=== PATIENT | female | born 1985 | race Caucasian/White ===

== ENCOUNTER 2017-09-07 20:59 | Emergency (ER) | payer OTHER ==
[2017-09-07 21:08] VITALS: BP 127/71; PULSE 74; RESP 18; TEMP 97.7; O2SAT 96
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
[2017-09-07] MEDS ORDERED: HYDROCOD/APAP 5/325 PREPACK#6 BTL TAKEHOME ONE (21:59)
== END 2017-09-07 22:24 | disposition home or self-care (01) ==
PROC: 0HBFXZZ Excision of Right Hand Skin, External Approach (ICD-10-PCS; principal; 2017-09-07)
DX: T23.231A Burn of second degree of multiple right fingers (nail), not including thumb, initial encounter (principal); T31.0 Burns involving less than 10% of body surface; X19.XXXA Contact with other heat and hot substances, initial encounter; Y99.8 Other external cause status; Y93.89 Activity, other specified

== ENCOUNTER 2018-10-05 11:46 | Observation (INO) | payer BC ==
[2018-10-05 12:32] LABS: PLATELET COUNT 226 10^3/uL (150-400)
--- NOTE | 2018-10-05 14:09 | PDGENHP ---
History and Physical History and Physical: CARE: [facility][1] HPI: Patient is a 33 yo at 32 weeks ega who presents to L&D from the [facility][1] due to an episode of blurry vision and high BPs at work this AM. Her BP at the [facility] was 112/90. She was sent here for further evaluation. She reports good movement, denies pain/contractions, LOF or vaginal bleeding. She states she has not been sleeping well the last several nights, woke up at 4 am today and had a mostly carbohydrate breakfast. She drank 2 liters of water after blurry vision episode and feels better now. EDC: 11/26/18 which is based on LMP: 02/19/18 which is known and consistent with Ultrasound at 8 weeks. Her is complicated by: -h/o anxiety, frequently stress related- not treated Review of Systems: Constitutional: Denies any fever, chills, has had some mild fatigue today HEENT: reports period of blurry vision, denies difficulty swallowing, hearing loss Cardiovascular: Denies any chest pain, palpitations, leg swelling Respiratory: denies any cough, wheezing, or shortness of breathe GI: Denies any nausea, vomiting, diarrhea, constipation : denies any dysuria, urgency, frequency, vaginal bleeding Musculoskeletal: denies any muscle or bone pain Skin: denies any rashes Neuro: denies any headache, seizures, lightheadedness, dizziness, or loss of consciousness Psychiatric: denies any current depression, anxiety, or SI/HI thoughts HISTORY: Previous OB history: none Past medical history: mild anxiety, not treated Social history: , denies tobacco, alcohol or street drug use Past surgical history: none Medications: PNV, DHA, magnesium, folic acid Allergies (list reaction): NKDA LABS: Rh: B pos ABS: Neg Rubella: Immune HbsAg: NR HIV: NR VDRL: NR 1hr: 74 GC: Neg Chlamydia: Neg Pap: Normal GBS: unknown PHYSICAL EXAM: Constitutional: WN, A&Ox3 Skin: pink, warm and dry HEENT: normocephalic atraumatic, supple Heart: RRR, no murmur Chest: CTA-B Abdomen: Soft, nontender, gravid SVE: deferred Extremities: trace lower extremity edema, negative bolivar's sign Neuro: grossly normal Psych: normal affect assessment: Reassuring FHTs, baseline 140s +accels, no decels, moderate variability Contractions: toco quiet Assessment: 1) 33 yo G 1P 0 with IUP@ 32 weeks ega with h/o blurry vision episode and elevated BPs at work this AM 2) Serial BPs here in L/D : 110-120s/60s range 3) All PIH labs WNL, urine dip neg protein 4) Cat 1 FHR tracing, no pain/cntx, active baby 5) Suspect low blood sugar episode or dehydration with the possibility of inaccurate BP cuff at work Plan: Discharge home 1) Encouraged better hydration and protein intake with every meal 2) Pre-eclampsia precautions reviewed with patient - to call center if similar symptoms return 3) kick counts reviewed 4) Follow up with center for [facility] tomorrow
== END 2018-10-05 14:10 | disposition home or self-care (01) ==
LOC: FLD 11:46
PROVIDERS: ADMIT Advanced Practice Midwife; ATTEND Advanced Practice Midwife
DX: O16.3 Unspecified maternal hypertension, third trimester (principal); H53.8 Other visual disturbances; Z3A.32 32 weeks gestation of pregnancy
CPT/HCPCS: G0378 ×2

== ENCOUNTER 2018-11-10 09:28 | Inpatient (IN) | payer BC ==
[2018-11-10] MEDS ORDERED: OLIVE OIL 118 ML BTL MISC ONE (10:12)
[2018-11-10] MEDS ORDERED: TERBUTALINE SULFATE 1 MG/ML VIAL IV ONE (10:12)
--- NOTE | 2018-11-10 10:42 | PDANEPAE ---
ANE Past Medical History - Pulmonary History Hx Sleep Apnea: No - Endocrine History Hx Diabetes: No ANE Review of Systems Review of Systems: ANE Patient History - Allergies Allergies/Adverse Reactions: No Known Allergies Allergy (Unverified 09/07/17 21:05) - Home Medications Home Medications: NK [No Known Home Meds] 09/07/17 [Last Taken Unknown] - Smoking Hx Smoking Status: Never smoked ANE Physical Exam - Airway Neck exam: FROM Mallampati Score: Class 1 Mouth exam: normal dental/mouth exam - Pulmonary Pulmonary: no respiratory distress - Cardiovascular Cardiovascular: regular rate and rhythym - ASA Status ASA Status: II ANE Anesthesia Plan Anesthesia Plan: MAC
--- NOTE | 2018-11-10 11:16 | GHP ---
DATE OF ADMISSION: 11/10/2018 HISTORY OF PRESENT ILLNESS: The patient is a 33-year-old 1, para 0, who is 37-3/7 weeks' ges tation and with known breech presentation. The patient's estimated date of confinement is 11/26/2018 , dated by last menstrual period of 02/19/2018, and consistent with a 1st-trimester ultrasound. Sharla ent has been receiving care with the [facility]. She has been known to be in a breech presentation and was counseled in our office about attempted external cephalic version versus scheduled . The patient has been properly consented and is electing to proceed with an ext ernal cephalic version. Risks and benefits have been extensively reviewed with the patient and the f ather of the baby, and patient has been properly consented. MEDICAL HISTORY: Significant for mild anxiety. Patient is a 21 congenital adrenal hyperplasia niranjan er. Father of the baby is negative. MEDICATIONS: vitamins and iron. SURGICAL HISTORY: None. ALLERGIES: No known drug allergies. SOCIAL HISTORY: Patient is a vet. She denies tobacco, alcohol, or drug use. FAMILY MEDICAL HISTORY: Noncontributory. 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 Periods every 35 days lasting 3-8 days. She is a 1, para 0. Patient initiated care at [facility], then transferred to [facility], and then later transferred to the [facility]. Patient denies any history of any abn ormal Pap smears or sexually transmitted diseases. PHYSICAL EXAM: VITAL SIGNS: Stable. GENERAL APPEARANCE: Alert and oriented x3. MUSCULOSKELETAL: Grossly intact. PSYCH: Appropriate affect. HEART: Irregular irregular. LUNGS: Clear to ausculta tion bilaterally. ABDOMEN: Gravid, nondistended, nontender. EXTREMITIES: No calf tenderness or ed alexandra. PELVIC: Deferred. heart tracing is positive accelerations, no decelerations. Is reacti ve and reassuring, and baby is confirmed to be in the breech presentation. LABORATORY DATA: Blood type B positive, antibody screen negative, rubella immune. HBsAg ne gative. HIV negative. Her 50 g glucose was 74. Her GBS was unknown. REVIEW OF SYSTEMS: 10-point review of systems is negative. Positive movement. No loss of flu id. No vaginal bleeding. Denies any headache or changes in vision. ASSESSMENT AND PLAN: 33-year-old 1, para 0, at 37-3/7 weeks' gestation, here for an attempte d external cephalic version. Risks and benefits have been extensively reviewed with the patient. Th e patient has been properly consented. /[id number]/MODL
--- NOTE | 2018-11-10 11:37 | SOAPPROG ---
SOAP Progress Note Assessment/Plan: Assessment: [id number] with IUP@ 37-3wks Breech presentation failed ECV Cat 1 FHR tracing Plan: d/c home f/u with CNM @ [facility] and labor prec discussed advised to cont position changes 11/10/18 11:34 Subjective: Pt doing well. Feels good about attempt to rotate baby. She denies any pain. Objective: FHR tracing 125, +Accels, no decels, mod BTBV ICD10 Worksheet Patient Problems: Problems Problem Status Onset Breech presentation Acute - ICD10 Problem Qualifiers (1) Breech presentation
--- NOTE | 2018-11-10 11:42 | POSTANESTH ---
Post Anesthetic Evaluation Cardiovascular Status: Similar to Pre-Op Cond Respiratory Status: Similar to Pre-op Cond. Level of Consciousness/Mental Status: Alert and Oriented Pain Control: Adequate, Prn Tx Ordered Nausea/Vomiting Control: Adequate, Prn Tx Ordered Complications Possibly Related to Anesthesia: None Noted
--- NOTE | 2018-11-10 16:20 | OBPROG ---
Labor Progress Note Assessment/Plan: Assessment: 33 y/o @ 37 3/7 weeks with malpresentation-breech s/p failed ECV this morning now with vaginal bleeding Plan: Will obtain u/s to r/o abruption FHTs - Category I tracing, cont to monitor If she continues to bleed, will proceed with c/s tonight NPO for now, last ate at 1300 11/10/18 16:16 Subjective/Intrapartum Course: 11/10/18 16:20 Pt seen and examined. She states some mild cramping, but doesn't feel like BH ctx's. She has been lying in bed and noted bleeding that began around 1330. She is still bleeding that is staining her underwear. Good FM noted. Objective: Patient ABO/Rh B POSITIVE 11/10/18 10:30 - Contraction Pattern Assessment Current Contraction Pattern: Other (Specify) (no irritability; no ctx's) - FHR Assessment Springer FHR (bpm): 140 FHR Pattern Variability: Moderate FHR Category: 1 - Physical Exam General Appearance: WD/WN, alert, no apparent distress Abdomen: non-tender, soft, other (gravid) Oxytocin Orders Assessment - Pre-Induction/Augmentation Assessment Gestational Age: 37 week(s) and 5 day(s) ICD10 Worksheet Patient Problems: Problems Problem Status Onset Breech presentation Acute
[2018-11-10 18:08] LABS: PLATELET COUNT 204 10^3/uL (150-400)
--- NOTE | 2018-11-10 19:17 | OBPROG ---
Labor Progress Note Assessment/Plan: Assessment: 33 y/o @ 37 5/7 weeks with malpresentation-breech s/p failed ECV this morning now with vaginal bleeding Plan: US reveals ant fundal placenta without abruption Pt is Rh positive (B+) Pt is stable at this time and bleeding seems to have slowed down FHTs - Category I tracing, no irritability on toco Will do pad count overnight and continue to observe MFM consult in am 11/11/18 11/10/18 19:21 Subjective/Intrapartum Course: 11/10/18 16:20 Pt seen and examined. She states some mild cramping, but doesn't feel like BH ctx's. She has been lying in bed and noted bleeding that began around 1330. She is still bleeding that is staining her underwear. Good FM noted. 11/10/18 19:18 Pt states bleeding has slowed down and just finished eating dinner. Notes Good FM. Denies any pain or ctx's at this time. Objective: 11/10/18 17:30 Patient ABO/Rh B POSITIVE 11/10/18 10:30 - Contraction Pattern Assessment Current Contraction Pattern: Other (Specify) (no irritability; no ctx's) - FHR Assessment Springer FHR (bpm): 135 FHR Pattern Variability: Moderate FHR Category: 1 - AP Antepartum Course: 11/10/18 19:19 center patient; malpresentation-breech for ECV; GBS unknown Oxytocin Orders Assessment - Pre-Induction/Augmentation Assessment Gestational Age: 37 week(s) and 5 day(s) ICD10 Worksheet Patient Problems: Problems Problem Status Onset Breech presentation Acute Failed external cephalic version Acute Vaginal bleeding during Acute - ICD10 Problem Qualifiers (1) Vaginal bleeding during (2) Failed external cephalic version
--- NOTE | 2018-11-11 11:36 | GOP ---
DATE OF OPERATION: 11/10/2018 SURGEON: Loretta Sainz DO PREOPERATIVE DIAGNOSIS: POSTOPERATIVE DIAGNOSIS: PROCEDURE PERFORMED: FINDINGS: DESCRIPTION OF PROCEDURE: Patient presented an is a 33-year-old, G1, P0 who presented for an externa l cephalic version and the patient's status was reassuring prior to the attempted external ceph alic version. A bedside ultrasound was performed, which showed the baby to be in the bakari breech pr esentation. An IV was started. She was given IV terbutaline 0.25 mg and an external cephalic versio n was attempted. Two attempts at a forward roll were made and 1 attempt at a backward roll. We were able to get the baby to flip temporarily, but it reverted back to breech presentation. status remained reassuring throughout the entire procedure. She had a nonstress test and monitoring for an hour after the procedure in which the baby remained reassuring. The patient was instructed to follo w up with labor precautions and kick counts and to schedule a primary section at 39 weeks. PLANNED PROCEDURE: Attempted external cephalic version. /[id number]/MODL
[2018-11-11] MEDS ORDERED: CITRIC ACID/SODIUM CITRATE 30 ML UDCUP PO ONE (17:01)
[2018-11-11] MEDS ORDERED: LR 500 ML IV ONE (17:01)
[2018-11-11] MEDS ORDERED: ceFAZolin 2 GM/DEXTROSE 100 ML IV ONE (17:01)
--- NOTE | 2018-11-11 17:13 | PREANESOB ---
Obstetric Pre-Anesthesia Info - General Info Proposed Procedure: c/s : 1 Para: 0 JEWEL: 11/26/18 Gestational Age: 37 week(s) and 5 day(s) - Labor Status PIH: No Magnesium Sulfate in Use: No Section History: Primary Indications for Current Section: Abnormal Lie Labor Epidural: No Anesthesia Allergies/Adverse Reactions: Allergy/AdvReac Type Severity Reaction Status Date / Time No Known Allergies Allergy Unverified 09/07/17 21:05 Home Medications: Medication Instructions Recorded NK [No Known Home Meds] 09/07/17 Visit Medications: Generic Name Dose Route Start Last Admin Trade Name Freq PRN Reason Stop Dose Admin Cefazolin Sodium/Dextrose 100 mls @ 200 mls/hr 11/11/18 17:01 Ancef IV 11/11/18 17:30 ONCALL ONE Protocol Lactated Ringer's 1,000 mls @ 125 mls/hr 11/11/18 17:30 Lr IV 11/12/18 17:29 CONT ANTHONY Discontinued Medications Generic Name Dose Route Start Last Admin Trade Name Freq PRN Reason Stop Dose Admin Citric Acid/Sodium Citrate 30 ml 11/11/18 17:01 Bicitra PO 11/11/18 17:02 ONCALL ONE Lactated Ringer's 500 mls @ 0 mls/hr 11/11/18 17:01 Lr IV 11/11/18 17:02 ONCE ONE As Directed [place] Oil 118 ml 11/10/18 10:12 11/11/18 09:41 Sweet Oil MISC 11/10/18 10:13 Not Given ONCE ONE Terbutaline Sulfate 0.25 mg 11/10/18 10:12 11/10/18 11:05 Brethine IV 11/10/18 10:13 0.25 mg ONCALL ONE Administration - Anesthesia History Response to Local Anesthetics: Normal - Social History Substance Use/Abuse: Denies - Vital Signs Latest Vital Signs (Nursing): Temp Pulse Resp BP Pulse Ox 36.8 C 16 131/73 H 11/11/18 16:47 11/11/18 16:47 11/11/18 16:47 Height/Weight (Nursing): Height 167.64 cm Weight 78.018 kg - Focused Exam Neck exam: FROM Mallampati Score: Class 2 Mouth exam: normal dental/mouth exam Pulmonary: no respiratory distress, clear to auscultation Cardiovascular: regular rate and rhythym, no murmur, rub, or gallop Labs: 11/10/18 17:30 Patient ABO/Rh B POSITIVE 11/10/18 10:30 - Plan Consent Signed and on Chart: Yes Patient/Guardian Understands and Agrees to Plan: Yes
[2018-11-11] MEDS ORDERED: MISOPROSTOL 200 MCG TAB ONE (17:18)
[2018-11-11] MEDS ORDERED: morphINE PF 5 MG/10 ML INJ ONE (17:18)
[2018-11-11] MEDS ORDERED: LR 1,000 ML IV SCH (17:30)
[2018-11-11] MEDS ORDERED: ONDANSETRON 4 MG/2 ML VIAL IVP PRN (19:18)
[2018-11-11] MEDS ORDERED: NALOXONE HCL 0.4 MG/ML INJ IVP PRN (19:18)
--- NOTE | 2018-11-11 19:22 | POSTANESTH ---
Post Anesthetic Evaluation Cardiovascular Status: Normal, Stable Respiratory Status: Normal, Stable Level of Consciousness/Mental Status: Can Participate in Eval Pain Control: Adequate, Prn Tx Ordered Nausea/Vomiting Control: Adequate, Prn Tx Ordered Complications Possibly Related to Anesthesia: None Noted
[2018-11-11] MEDS ORDERED: OXYTOCIN/RINGERS LACTATE 1,000 ML IV SCH (20:00)
[2018-11-11] MEDS ORDERED: POLYETHYLENE GLYCOL 3350 17 GM PKT PO PRN (20:03)
[2018-11-11] MEDS ORDERED: MAGNESIUM HYDROXIDE 30 ML UDCUP PO PRN (20:03)
[2018-11-11] MEDS ORDERED: LACTULOSE 20 GM/30 ML UDCUP PO PRN (20:03)
[2018-11-11] MEDS ORDERED: PROMETHAZINE HCL 25 MG/ML INJ IVP ONE (20:03)
[2018-11-11] MEDS ORDERED: BISACODYL 10 MG SUPP PR PRN (20:03)
--- NOTE | 2018-11-11 20:09 | OBDEL ---
Info Type: Primary Presentation at Delivery: Breech L&D Analgesia/Anesthesia Type: Spinal GBS+: No (unknown) Intrapartum Medications: Discontinued Medications Generic Name Dose Route Start Last Admin Trade Name Rosa PRN Reason Stop Dose Admin Cefazolin Sodium/Dextrose 100 mls @ 200 mls/hr 11/11/18 17:01 11/11/18 17:25 Ancef IV 11/11/18 17:30 100 mls ONCALL ONE Administration Protocol [place] Oil 118 ml 11/10/18 10:12 11/11/18 09:41 Sweet Oil MISC 11/10/18 10:13 Not Given ONCE ONE Terbutaline Sulfate 0.25 mg 11/10/18 10:12 11/10/18 11:05 Brethine IV 11/10/18 10:13 0.25 mg ONCALL ONE Administration - Care Provider Terrazzo Mechanic Helper/DONOR SUPPORT TECHNICIAN: Deisy Benitez - Hospital Course Intrapartum: 11/10/18 16:20 Pt seen and examined. She states some mild cramping, but doesn't feel like BH ctx's. She has been lying in bed and noted bleeding that began around 1330. She is still bleeding that is staining her underwear. Good FM noted. 11/10/18 19:18 Pt states bleeding has slowed down and just finished eating dinner. Notes Good FM. Denies any pain or ctx's at this time. Operative Report - Delivery Pre-op Diagnoses: IUP at 37w6d, breech, failed ECV, partial placenta abruption Post-op Diagnoses: same History of Prior Section: No Nulliparous Prior to Delivery: No Indications for Current Section: Breech, Placental Abruption ( suspicion for abruption due to bleeding after GOPI) Procedure: Unscheduled Surgeon: Ai Gill Relay Engineer: Edelmira Cardenas Anesthesiologist: Deisy Benitez Complications: Other (Specify) (breech) Findings: nl uterus except small bleb on ant right DUARTE - c/w old blood accumulation - approx 1.5 cm. nl ov/tubes. clear fluid. placenta well applied - small lobe to side. baby vigorous after . 1 min delayed cord clamp [place] Data JEWEL: 11/26/18 Gestational Age: 37 week(s) and 6 day(s) Springer Delivery Date: 11/11/18 Delivery Time: 18:20 Sex of : Male Score (1 Min): 8 Score (5 Min): 9 ICD10 Worksheet Patient Problems: Problems Problem Status Onset Breech presentation Acute Failed external cephalic version Acute S/P primary low transverse Acute Vaginal bleeding during Acute
[2018-11-11] MEDS: KETOROLAC 30 MG/1 ML SDV IVP SCH (23:24)
[2018-11-11] MEDS: IBUPROFEN 600 MG TAB PO SCH (23:28)
[2018-11-11] MEDS: ACETAMINOPHEN 325 MG TAB PO SCH (23:30)
[2018-11-11] MEDS: SENNOSIDES/DOCUSATE SODIUM TAB PO SCH (23:31)
[2018-11-12] MEDS: ACETAMINOPHEN 325 MG TAB PO SCH ×4 (04:13→21:02)
[2018-11-12] MEDS: IBUPROFEN 600 MG TAB PO SCH ×3 (04:13→17:39)
[2018-11-12] MEDS: KETOROLAC 30 MG/1 ML SDV IVP SCH ×3 (05:58→19:04)
[2018-11-12] MEDS: SENNOSIDES/DOCUSATE SODIUM TAB PO SCH ×2 (09:00→21:03)
--- NOTE | 2018-11-12 14:58 | PDPAINCON ---
Pain Management Consultation Patient referred by : Reinaldo - Subjective Pain is: under control Side effects include: itchiness Activity: able to ambulate - Objective Technique: spinal opioid Vital signs: stable - Assessment/Plan Assessment/Plan: pain well-controlled, continue current mgmt (Pt doing well s/p CS with spinal duramorph. Reports some itchiness however manageable.)
[2018-11-12] MEDS ORDERED: KETOROLAC 30 MG/1 ML SDV IVP ONE (18:30)
--- NOTE | 2018-11-12 22:06 | OBPP ---
Progress Note Assessment/Plan: Assessment: pod# 1 s/p PLTCS for breech - failed version probable partial abruption breast feeding routine post care anemia - iron Plan: 11/12/18 22:03 11/12/18 22:05 Subjective/ Course: 11/12/18 22:05 patient is doing well. pain is well controlled. sitting up in rocking chair. breast feeding is going well. denies headache and changes in vision. normal lochia. pain is well controlled. Objective: 11/12/18 03:50 Patient ABO/Rh B POSITIVE 11/10/18 10:30 Temp Pulse Resp BP Pulse Ox 36.3 C 92 18 104/69 95 11/12/18 20:00 11/12/18 20:00 11/12/18 20:00 11/12/18 20:00 11/12/18 20:00 Physical Exam - Physical Exam Neck: non-tender, full range of motion, supple Respiratory: chest non-tender, lungs clear, normal breath sounds Cardiac/Chest: normal peripheral pulses, regular rate, rhythm Abdomen: normal bowel sounds, non-tender Extremities: normal range of motion, non-tender, normal inspection, normal capillary refill Skin: normal color, warm/dry, other (incision covered) Neuro/Psych: no motor/sensory deficits, alert, normal mood/affect, oriented x 3
[2018-11-13] MEDS: IBUPROFEN 600 MG TAB PO SCH ×5 (01:04→19:19)
[2018-11-13] MEDS: oxyCODONE IR 5 MG TAB PO PRN ×6 (01:21→23:17)
[2018-11-13] MEDS: ACETAMINOPHEN 325 MG TAB PO SCH ×3 (03:00→16:28)
[2018-11-13] MEDS: SENNOSIDES/DOCUSATE SODIUM TAB PO SCH ×2 (09:19→19:19)
[2018-11-13] MEDS: FERRO-SEQUELS 65 MG TAB.ER PO SCH (09:20)
--- NOTE | 2018-11-13 09:41 | OBPP ---
Progress Note Assessment/Plan: Assessment: pod# 2 s/p PLTCS for breech - failed version probable partial abruption breast feeding routine post care anemia - iron 11/13/18 09:34 Subjective/ Course: 11/12/18 22:05 patient is doing well. pain is well controlled. sitting up in rocking chair. breast feeding is going well. denies headache and changes in vision. normal lochia. pain is well controlled. 11/13/18 09:35 patient is doing great. pain has increased as duramorph has worn off but pain is controlled with oxycodone. had a small bowel movement. denies headache and changes in vision. ambulating without difficulty. breast feeding is going well. Objective: 11/12/18 03:50 Patient ABO/Rh B POSITIVE 11/10/18 10:30 Temp Pulse Resp BP Pulse Ox 36.6 C 62 16 110/79 96 11/13/18 01:33 11/13/18 01:33 11/13/18 01:33 11/13/18 01:33 11/13/18 01:33 Physical Exam - Physical Exam EENT: PERRL/EOMI, normal ENT inspection Neck: non-tender, full range of motion Respiratory: chest non-tender, lungs clear, normal breath sounds Cardiac/Chest: normal peripheral pulses, regular rate, rhythm Abdomen: normal bowel sounds, non-tender, other (fundus firm and non tender) Extremities: normal range of motion, non-tender, normal inspection, normal capillary refill Skin: normal color, warm/dry, other (incicison clean dry and intact) Neuro/Psych: no motor/sensory deficits, alert, normal mood/affect, oriented x 3
[2018-11-14] MEDS: IBUPROFEN 600 MG TAB PO SCH ×3 (02:38→15:20)
[2018-11-14] MEDS: ACETAMINOPHEN 325 MG TAB PO SCH ×4 (02:38→15:20)
[2018-11-14] MEDS: oxyCODONE IR 5 MG TAB PO PRN ×3 (03:21→12:58)
[2018-11-14] MEDS: FERRO-SEQUELS 65 MG TAB.ER PO SCH (08:53)
[2018-11-14] MEDS: SENNOSIDES/DOCUSATE SODIUM TAB PO SCH (08:54)
--- NOTE | 2018-11-14 10:40 | OBPP ---
Progress Note Assessment/Plan: Assessment: 33 y/o POD #3 s/p LTCS secondary to breech, failed ECV and bleeding Plan: D/c home today with Rx Ibuprofen, Oxy and Iron. Follow-up @ [facility] 2,4 and 6 weeks. 11/14/18 10:41 Subjective/ Course: 11/12/18 22:05 patient is doing well. pain is well controlled. sitting up in rocking chair. breast feeding is going well. denies headache and changes in vision. normal lochia. pain is well controlled. 11/13/18 09:35 patient is doing great. pain has increased as duramorph has worn off but pain is controlled with oxycodone. had a small bowel movement. denies headache and changes in vision. ambulating without difficulty. breast feeding is going well. 11/14/18 10:30 Pt is doing better today. She has good pain control with Ibuprofen, Tylenol and Oxycodone. She is ambulating, voiding and has min lochia. She had a BM today and it was fine. Breast feeding is going well. They are ready to go home. Objective: 11/12/18 03:50 Patient ABO/Rh B POSITIVE 11/10/18 10:30 Temp Pulse Resp BP Pulse Ox 37.1 C 66 16 102/66 94 11/13/18 20:00 11/13/18 20:00 11/13/18 20:00 11/13/18 20:00 11/13/18 20:00 Uterine Position/Fundal Height: Umbilicus -3 Uterine Tone: Firm Physical Exam - Physical Exam General Appearance: alert, no apparent distress Neck: non-tender, full range of motion, supple Respiratory: chest non-tender, lungs clear, normal breath sounds Cardiac/Chest: regular rate, rhythm Abdomen: normal bowel sounds, incision (c/d/i) Extremities: swelling (no), Roula's sign (neg)
--- NOTE | 2018-11-14 10:46 | OBGCSDC ---
General Delivery Information - General Info : 1 Para: 1 Abortions: 0 Type: Primary L&D Analgesia/Anesthesia Type: Spinal Admission Date: 11/12/18 Labs: Patient ABO/Rh B POSITIVE 11/10/18 10:30 Hct 34.1 % (38.0-47.0) L 11/12/18 03:50 - Hospital Course Antepartum: 11/10/18 19:19 center patient; malpresentation-breech for ECV; GBS unknown Intrapartum: 11/10/18 16:20 Pt seen and examined. She states some mild cramping, but doesn't feel like BH ctx's. She has been lying in bed and noted bleeding that began around 1330. She is still bleeding that is staining her underwear. Good FM noted. 11/10/18 19:18 Pt states bleeding has slowed down and just finished eating dinner. Notes Good FM. Denies any pain or ctx's at this time. : 11/12/18 22:05 patient is doing well. pain is well controlled. sitting up in rocking chair. breast feeding is going well. denies headache and changes in vision. normal lochia. pain is well controlled. 11/13/18 09:35 patient is doing great. pain has increased as duramorph has worn off but pain is controlled with oxycodone. had a small bowel movement. denies headache and changes in vision. ambulating without difficulty. breast feeding is going well. 11/14/18 10:30 Pt is doing better today. She has good pain control with Ibuprofen, Tylenol and Oxycodone. She is ambulating, voiding and has min lochia. She had a BM today and it was fine. Breast feeding is going well. They are ready to go home. - Delivery Providers Surgeon: Ai Gill [employer] Operating Engineer: Edelmira Cardenas Anesthesiologist: Deisy Benitez - Delivery Indications for Current Section: Breech, Placental Abruption ( suspicion for abruption due to bleeding after GOPI) Surgical Procedures: Unscheduled Intra-op Complications: Other (Specify) (breech) [place] Data JEWEL: 11/26/18 Gestational Age: 38 week(s) and 2 day(s) Springer Delivery Date: 11/11/18 Delivery Time: 18:20 Sex of Infant: Male Weight (gm): 2452 kg Score (1 Min): 8 Score (5 Min): 9 Discharge Information - Discharge Information Prescriptions: oxyCODONE IR [Oxycodone Ir (*)] 5 - 10 mg PO Q4HRS PRN #30 tab PRN Reason: Pain, Severe Ibuprofen [Motrin (*)] 600 mg PO Q6H #30 tab Iron/Vit C/Docusate [Yuridia-Sequels 65 mg (*)] 1 each PO DAILY #30 tab.er Condition: Good Instruction/Follow Up: Two Weeks, Four Weeks, Six Weeks
[2018-11-14 10:48] VITALS: BP 100/66
== END 2018-11-14 14:20 | disposition home or self-care (01) | DRG 786 ==
LOC: FOBOP 09:28 → FLD 16:28 → FOB 11-11 22:36 → OBSVTOIN 11-12 03:48
PROVIDERS: ADMIT Obstetrics & Gynecology; ATTEND Obstetrics & Gynecology
PROC: 10S0XZZ Reposition Products of Conception, External Approach (ICD-10-PCS; 2018-11-10)
PROC: 10D00Z1 Extraction of Products of Conception, Low, Open Approach (ICD-10-PCS; principal; 2018-11-12)
DX: O32.1XX0 Maternal care for breech presentation, not applicable or unspecified (principal); O45.93 Premature separation of placenta, unspecified, third trimester; O99.03 Anemia complicating the puerperium; O99.343 Other mental disorders complicating pregnancy, third trimester; D64.9 Anemia, unspecified; F41.9 Anxiety disorder, unspecified; Z3A.37 37 weeks gestation of pregnancy; Z37.0 Single live birth
CPT/HCPCS: J0690; J1885; J2274; J2405; J3105